=== PATIENT | female | born 2005 | race Caucasian/White ===

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

== ENCOUNTER 2024-09-21 10:18 | Outpatient (CLI) | payer BC, SELFPAY | END 2024-09-21 10:19 | disposition home or self-care (01) | PROVIDERS: PCP Nurse Practitioner Family; Visit Provider Nurse Practitioner Family | DX: N61.0 Mastitis without abscess (principal) | CPT/HCPCS: 87070 ==

== ENCOUNTER 2024-10-21 15:42 | Outpatient (CLI) | payer BC, SELFPAY ==
[2024-10-21 23:45] LABS: Chlamydia DNA Amplified* NOT DETECTED (No Detected); GC DNA Amplified* NOT DETECTED (No Detected)
== END 2024-10-21 15:43 | disposition home or self-care (01) ==
LOC: KYNREF 15:43
PROVIDERS: PCP Nurse Practitioner Family; Visit Provider Nurse Practitioner Family
DX: Z11.3 Encounter for screening for infections with a predominantly sexual mode of transmission (principal)
CPT/HCPCS: 87491; 87591

== ENCOUNTER 2025-03-16 13:42 | Outpatient (CLI) | payer BC, SELFPAY ==
--- NOTE | 2025-03-16 14:00 | CRLHL7_ITS ---
For Patients: As a result of the Century Cures Act, medical imaging exams and procedure reports are released immediately into your electronic medical record. You may view this report before your referring provider. If you have questions, please contact your health care provider. OBSTETRICAL ULTRASOUND TRANSABDOMINAL, 03/16/2025 CLINICAL INDICATION: Dating. LMP: ? VERNON by LMP: 10/04/2025 Gestational age: 11 weeks 1 day Previous ultrasound: No TECHNIQUE: Real-time browning-scale imaging of the fetus was performed transabdominal. FINDINGS: CRL: 2.5 cm, 9 weeks 2 days; VERNON 10/17/2025 heart rate: 173 BPM Gestational sac: 4.3 cm, appears within normal limits Yolk sac: 3.8 mm, appears within normal limits Right ovary: Within normal limits; 3.8 x 2.4 x 2.4 cm, CL Left ovary: Not visualized IMPRESSION: Single living intrauterine measuring 9 weeks 2 days with sonographic due date of 10/17/2025. CHICHO SHAH M.D. Diagnostic Radiologist [email or web address] Transcribed: 2:[address]/Dictated by: Chicho Shah MD @ 03/16/2025 2:24:00 PM (Electronically Signed)
== END 2025-03-16 13:43 | disposition home or self-care (01) ==
LOC: US 13:43
PROVIDERS: PCP Nurse Practitioner Family; Visit Provider Midwife
DX: Z34.91 Encounter for supervision of normal pregnancy, unspecified, first trimester (principal); Z3A.09 9 weeks gestation of pregnancy
CPT/HCPCS: 76801; 83021; 84443; 86703; 86706; 86803; 86850; 86900; 86901; 87086; 87340

== ENCOUNTER 2025-03-16 15:02 | Outpatient (CLI) | payer BC, SELFPAY | END 2025-03-16 15:03 | disposition home or self-care (01) | PROVIDERS: PCP Nurse Practitioner Family; Visit Provider Midwife | DX: Z34.01 Encounter for supervision of normal first pregnancy, first trimester (principal); Z36.89 Encounter for other specified antenatal screening | CPT/HCPCS: 83020; 83021; 84443; 85660; 86592; 86703; 86704; 86706; 86762; 86787; 86803; 86850; 86900; 86901; 87086; 87340 ==

== ENCOUNTER 2025-03-17 15:19 | Outpatient (CLI) | payer BC, SELFPAY ==
--- OUTSIDE RECORDS SUMMARY | 2025-03-18 00:38 | XMS_ITS | Clinical Summary ---
Author Organization [facility] Address [address] [place] [id number] Care Team Providers Care Foreign Exchange Services Manager Name Role Phone Chicho Peña MD Primary Care Provider + Allergies No known active allergies Medications polyethylene glycoL (MIRALAX) 17 gram/dose powder MIX ONE-HALF CAPFUL IN 4OZ GLASS OF WATER AND DRINK ONCE DAILY DIRECTED 527 g 0 2 Active ondansetron (ZOFRAN ODT) 4 mg disintegrating tabletIndications:N ausea Place 1 Tablet (4 mg) on the tongue every 8 hours if needed for Nausea/Vomit ing. 10 Tablet 3 Active ciprofloxacin HCl (CIPRO) 500 mg tabletIndications:N ausea,Pyelonephriti s Take 1 Tablet (500 mg) by mouth two times daily. 14 Tablet 3 Active Active Problems Problem Noted Date Diagnosed Date Unspecified constipation 03/02/2008 Immunizations Immunization Administration Dates Next Due AMB Influenza, IIV3 (Age >=3 years)(Flu Clinic Only) 07/07/2012,08/01/2010,08/11/2008 DTaP 09/10/2005, 5,2004,07/27 DTaP-IPV (Kinrix) 05/21/2010 HIB PRP-OMP (PedvaxHIB) 09/10/2005,2004, HPV 9 (Gardasil 9) 08/25/2017 Hepatitis A (Peds) 08/25/2017 Hepatitis B (Peds) 2004, 5,2004,05/27 Inactivated Polio Vaccine 2004,2004, 2004 Influenza, IIV3 (Age >=3 years) 08/07/2007 Influenza, IIV4 08/25/2017 MENINGOCOCCAL VACCINE 2 VIAL 2MO-55YO (MENVEO) 08/25/2017 MMR 05/21/2010,05/29/2005 Pneumococcal conj 7-Valent (Prevnar 7) 1 2004,2004,2004,07/27 Tdap 08/25/2017 Varicella Vaccine 05/21/2010,05/29/2005 Family History Medical History Relation Name Comments Psychiatric illness Mother Yessy hodges on Relation Name Status Comments Father Alive Mother Yessy Alive Sister 1 Alive Sister 2 Alive Social History Tobacco Use Types Packs/Day Years Used Date Smoking Tobacco: Passive Smo ke Exposure - Never Smoker Smokeless Tobacco: Never Alcohol Use Standard Drinks/Week Comments No 0 (1 standard drink = 0.6 oz pur e alcohol) Comments No Sex and Gender Information Value Date Recorded Sex Assigned at Not on file Legal Sex Female 7:05 AM [employer] Gender Identity Not on file Sexual Orientation Not on file Obstetrics History Last Filed Vital Signs Vital Sign Reading Time Taken Comments Blood Pressure 103/68 08/07/2023 12:59 PM [employer] Pulse 107 08/07/2023 12:59 PM [employer] Temperature 38 C (100.4 F) 08/07/2023 12:59 PM [employer] Respiratory Rate 16 08/07/2023 12:59 PM [employer] Oxygen Saturation 97% 08/07/2023 12:59 PM [employer] Inhaled Oxygen Concentration - - Weight 80.7 kg (178 lb) 08/07/2023 10:14 AM [employer] Height 172.7 cm (5' 8) 08/07/2023 10:14 AM [employer] Body Mass Index 27.06 08/07/2023 10:14 AM [employer] Plan of Treatment Health Maintenance Due Date Last Done Comments Depression screening for age 12+ 2016 HPV series for age 9-26 (2 - 2-dose series) 02/22/2018 08/25/2017 Well Child Check for age 3-20 08/25/2018 08/25/2017, 05/21/2010 HIV for age 15-65 2019 BMI (ht and wt on same day) for age 18+ 2022 Hepatitis C screening for age 18-79 2022 COVID-19 vaccine series ( season) 2024 03/13/2021, 02/20/2021 Influenza Vaccine (Season Ended) 2025 08/25/2017, 07/07/2012, 08/01/2010, Additional history exists Tetanus booster 08/25/2027 08/25/2017 Hepatitis B series for 19+ Completed 11/30, 2004, 2004, Additional history exists Pneumococcal series for age 6-49 Aged Out 09/10/2005, 2004, 2004, Additional history exists No longer eligible based on patient's age to complete this topic Meningococcal series for age 11-21 Aged Out 08/25/2017 No longer eligible based on patient's age to complete this topic Tdap Completed 08/25/[address] [place] [address] [employer] [address] [place] [address] [employer] Care Teams Foreign Exchange Services Manager Relationship Specialty Start Date End Date Chicho Peña MD [address] [place] [address] PCP - General 06/17/06
== END 2025-03-17 15:20 | disposition home or self-care (01) ==
LOC: KYNREF 15:20
PROVIDERS: PCP Nurse Practitioner Family; Visit Provider Nurse Practitioner Family
DX: Z34.91 Encounter for supervision of normal pregnancy, unspecified, first trimester (principal); Z3A.11 11 weeks gestation of pregnancy
CPT/HCPCS: 81001; 87086

== ENCOUNTER 2025-04-25 16:54 | Outpatient (CLI) | payer BC, SELFPAY | END 2025-04-25 16:55 | disposition home or self-care (01) | LOC: NFLDREF 16:55 | PROVIDERS: PCP Nurse Practitioner Family; Visit Provider Physician Assistant | DX: N39.0 Urinary tract infection, site not specified (principal); R31.9 Hematuria, unspecified | CPT/HCPCS: 87086 ==

== ENCOUNTER 2025-05-24 10:58 | Outpatient (CLI) | payer BC, SELFPAY ==
--- NOTE | 2025-05-24 11:15 | CRLHL7_ITS ---
For Patients: As a result of the Century Cures Act, medical imaging exams and procedure reports are released immediately into your electronic medical record. You may view this report before your referring provider. If you have questions, please contact your health care provider. OB ULTRASOUND GREATER THAN 14 WEEKS, 05/24/2025 CLINICAL HISTORY: anatomy survey. COMPARISON: None. TECHNIQUE: Real time browning scale imaging of the fetus was performed. Transabdominal imaging performed. FINDINGS: VERNON by US: 10/17/2025. GA: 19 weeks 1 day. Position: Breech. Cervix: Visualized. Technique: TA. Length of closed cervix: 4.2 cm. Placenta/Cord: Placenta Position: Posterior. Technique: TA. Placenta tip to internal OS: 5.3 cm. Umbilical Cord: 3 vessel cord. Placental Insertion: Central . Amniotic Fluid: 3.9 cm SDP. OBSERVED STRUCTURES: Calvarium/Spine: Cerebellum: 1.9 cm, 19 weeks 5 days Cisterna Magna: 3.2 mm Nuchal Fold: 2.8 mm Lateral ventricle: 6.4 mm CSP Choroid Plexus Midline Falx Spine Abdomen: Stomach Abd Cord Insert Urinary Bladder Kidneys Diaphragm Face: Nose/Lips Orbital View Profile Limbs: Upper Extremities Lower Extremities Hands Feet Vascular: 4 Ch Heart LVOT RVOT 3VV 3VTV BIOMETRY: BPD: 4.3 cm, 18 weeks 6 days. 38.1% HC: 16.5 cm, 19 weeks 1 day. 45.0% AC: 13.4 cm, 18 weeks 6 days. 37.0% FL: 3.0 cm, 19 weeks 1 day. 41.0% FL/AC: 21.98% HC/AC Ratio: 1.23. Heart Rate: 139 bpm. Age by this US: 19 weeks 1 day. VERNON by this US: 10/17/2025. EFW: 1268.72 grams. 0 lb 9 oz. Percentile by VERNON: 37.1% IMPRESSION: 1. Concordance of clinical and sonographic dating. 2. Normal anatomic survey. Chicho Elizalde M.D. Diagnostic Radiologist [email or web address] Transcribed: 12:42 pm DW/Dictated by: Chicho Elizalde MD @ 05/24/2025 12:09:00 PM (Electronically Signed)
== END 2025-05-24 10:59 | disposition home or self-care (01) ==
LOC: US 10:58
PROVIDERS: PCP Nurse Practitioner Family; Visit Provider Physician Assistant
DX: Z34.92 Encounter for supervision of normal pregnancy, unspecified, second trimester (principal); Z3A.19 19 weeks gestation of pregnancy
CPT/HCPCS: 76805

== ENCOUNTER 2025-06-02 16:00 | Outpatient (CLI) | payer BC, SELFPAY ==
[2025-06-02 16:11] VITALS: PULSE 101; O2SAT 100
[2025-06-02 16:13] VITALS: BP 124/77; PULSE 104
[2025-06-02 17:12] LABS: Appearance Urine Clear (Clear)
[2025-06-02 17:51] LABS: Bacterial Vaginosis* Negative (Negative); Candida glab/krus NOT DETECTED (No Detected)
== END 2025-06-02 17:57 | disposition home or self-care (01) ==
LOC: OB OUT 16:01 → OB 16:01
PROVIDERS: PCP Nurse Practitioner Family; Visit Provider Midwife
DX: O26.892 Other specified pregnancy related conditions, second trimester (principal); R19.7 Diarrhea, unspecified; Z3A.20 20 weeks gestation of pregnancy
CPT/HCPCS: 81003; 81513; 87481; 87661; G0463

== ENCOUNTER 2025-07-19 10:13 | Outpatient (CLI) | payer BC, SELFPAY | END 2025-07-19 10:14 | disposition home or self-care (01) | LOC: NFLDREF 07-22 13:04 | PROVIDERS: PCP Nurse Practitioner Family; Referring Provider Nurse Practitioner Family; Visit Provider Midwife | DX: Z34.92 Encounter for supervision of normal pregnancy, unspecified, second trimester (principal) | CPT/HCPCS: 86592 ==

== ENCOUNTER 2025-09-20 13:52 | Outpatient (CLI) | payer BC, SELFPAY ==
[2025-09-21 14:40] LABS: Strep B DNA Probe POSITIVE (Negative)
[2025-09-21 14:50] LABS: Strep B Susceptibility Needed? No
== END 2025-09-20 13:53 | disposition home or self-care (01) ==
LOC: NFLDREF 13:53
PROVIDERS: PCP Nurse Practitioner Family; Visit Provider Advanced Practice Midwife
DX: Z34.02 Encounter for supervision of normal first pregnancy, second trimester (principal)
CPT/HCPCS: 87081; 87653